=== PATIENT | male | born 1940 | race Caucasian/White ===

== ENCOUNTER 2016-08-16 06:18 | Emergency (ER) | payer MEDICARE, OTHER | END 2016-08-16 08:34 | disposition home or self-care (01) | LOC: FER 06:18 | DX: S83.412A Sprain of medial collateral ligament of left knee, initial encounter (principal); W54.1XXA Struck by dog, initial encounter; Y92.009 Unspecified place in unspecified non-institutional (private) residence as the place of occurrence of the external cause | CPT/HCPCS: 73564; 99283 ==

== ENCOUNTER 2021-10-11 07:08 | Inpatient (IN) | payer MEDICARE, OTHER ==
[~2021-10-11] VITALS: Ht 185.4 cm; Wt 75.9 kg
[~2021-10-11 07:08] MED LIST: CIPRO500 MG PO
[2021-10-11 07:39] LABS: BASOPHIL 0.9 % (0-2); EOSINOPHIL 1.8 % (0-7); HCT 46.3 % (42.0-52.0); HGB 14.3 g/dl (13.2-18.0); LYMPHOCYTE 23.7 % (15-48); MCH 26.8 pg (25.0-31.0); MCHC 30.9 g/dL (32.0-36.0); MCV 86.7 fL (78.0-100.0); MONOCYTE 6.5 % (0-12); NEUTROPHIL 66.9 % (41-80); NRBC 0; PLT 213 K/uL (150-400); RBC 5.34 M/uL (4.70-6.00); RDW 14.5 % (11.5-14.0); WBC 5.5 K/uL (4.0-10.5)
[2021-10-11 07:57] LABS: INR 1.02 (0.9-1.2); PROTHROMBIN TIME 13.1 SECONDS (11.9-13.9); PTT 29.7 SECONDS (24.9-34.6)
[2021-10-11 08:18] LABS: ALBUMIN 4.2 g/dL (3.4-5.0); GLOBULIN (CALCULATION) 3.9 g/dL; TOTAL PROTEIN 8.1 g/dL (6.4-8.2)
[2021-10-11 09:14] LABS: BILIRUBIN - TOTAL 0.5 mg/dL (0.2-1.0); BUN/CREAT RATIO (CALC) 18.4 RATIO; CREATININE 1.36 mg/dL (0.67-1.17)
[2021-10-11] MEDS ORDERED: ONE-A-DAY MEN'1 EAC3 PO (10:48)
[2021-10-11 11:09] LABS: BILIRUBIN NEGATIVE (NEGATIVE); BLOOD NEGATIVE Ery/uL (NEGATIVE); CLARITY CLEAR (CLEAR); COLOR YELLOW (YELLOW); GLUCOSE (U) NORMAL (NORMAL); LEUKOCYTES NEGATIVE Leu/uL (NEGATIVE); NITRITE NEGATIVE (NEGATIVE); PROTEIN TRACE (LOW) mg/dL (NEGATIVE); SPECIFIC GRAVITY 1.025 (1.001-1.030)
[2021-10-11] MEDS ORDERED: REFRESH CLASSI1 EACH EYEBOTH (18:29)
[2021-10-12 07:19] LABS: BUN/CREAT RATIO (CALC) 17.4 RATIO; CREATININE 1.38 mg/dL (0.67-1.17); MAGNESIUM 2.1 mg/dL (1.8-2.4); POTASSIUM 4.9 mmol/L (3.5-5.1)
[2021-10-12 07:26] LABS: BASOPHIL 1.2 % (0-2); EOSINOPHIL 4.2 % (0-7); HCT 39.7 % (42.0-52.0); HGB 12.4 g/dl (13.2-18.0); LYMPHOCYTE 25.5 % (15-48); MCH 27.3 pg (25.0-31.0); MCHC 31.2 g/dL (32.0-36.0); MCV 87.4 fL (78.0-100.0); MONOCYTE 9.9 % (0-12); MPV 8.9 fL (6.0-9.5); NRBC 0; PLT 192 K/uL (150-400); RBC 4.54 M/uL (4.70-6.00); RDW 14.5 % (11.5-14.0); WBC 5.1 K/uL (4.0-10.5)
[2021-10-13 07:33] LABS: HCT 38.2 % (42.0-52.0); HGB 11.9 g/dl (13.2-18.0); MCH 27.2 pg (25.0-31.0); MCHC 31.2 g/dL (32.0-36.0); MCV 87.2 fL (78.0-100.0); RBC 4.38 M/uL (4.70-6.00); RDW 14.5 % (11.5-14.0); WBC 5.9 K/uL (4.0-10.5)
[2021-10-13 07:50] LABS: BUN/CREAT RATIO (CALC) 20.6 RATIO; CREATININE 1.41 mg/dL (0.67-1.17); MAGNESIUM 2.1 mg/dL (1.8-2.4); POTASSIUM 4.8 mmol/L (3.5-5.1)
== END 2021-10-14 15:13 | disposition home or self-care (01) | DRG 200 ==
LOC: FER 07:08 → FMS 08:33
PROVIDERS: Emergency Medicine; ADMIT Internal Medicine
PROC: 0W9930Z Drainage of Right Pleural Cavity with Drainage Device, Percutaneous Approach (ICD-10-PCS; principal; 2021-10-11)
DX: J93.0 Spontaneous tension pneumothorax (principal); C77.2 Secondary and unspecified malignant neoplasm of intra-abdominal lymph nodes; J43.9 Emphysema, unspecified; Z20.822 Contact with and (suspected) exposure to COVID-19; N18.30 Chronic kidney disease, stage 3 unspecified; Z87.39 Personal history of other diseases of the musculoskeletal system and connective tissue; Z90.5 Acquired absence of kidney; Z85.528 Personal history of other malignant neoplasm of kidney
CPT/HCPCS: 36415; 71045; 80048; 80053; 81001; 83735; 83880; 84484; 85025; 85610; 85730; 93005; 96374; 96375; J1170; U0002

== ENCOUNTER 2021-10-21 11:35 | Inpatient (IN) | payer MEDICARE, OTHER ==
[~2021-10-21] VITALS: Ht 185.4 cm; Wt 73.7 kg
[~2021-10-21 11:35] MED LIST changes: +ONE-A-DAY MEN'1 EAC3 PO; +REFRESH CLASSI1 EACH EYEBOTH
[2021-10-21 12:48] LABS: BILIRUBIN NEGATIVE (NEGATIVE); BLOOD NEGATIVE Ery/uL (NEGATIVE); CLARITY CLEAR (CLEAR); COLOR YELLOW (YELLOW); GLUCOSE (U) NORMAL (NORMAL); LEUKOCYTES NEGATIVE Leu/uL (NEGATIVE); NITRITE NEGATIVE (NEGATIVE); PROTEIN NEGATIVE (NEGATIVE); UROBILINOGEN 0.2 mg/dL (0.2-1.0)
[2021-10-21 13:15] LABS: EOSINOPHIL 3.5 % (0-7); HCT 41.7 % (42.0-52.0); HGB 13.3 g/dl (13.2-18.0); MCHC 31.9 g/dL (32.0-36.0); MCV 84.6 fL (78.0-100.0); MONOCYTE 8.1 % (0-12); NEUTROPHIL 68.1 % (41-80); NRBC 0; PLT 250 K/uL (150-400); RBC 4.93 M/uL (4.70-6.00); RDW 14.2 % (11.5-14.0)
[2021-10-21 13:27] LABS: ALBUMIN 3.9 g/dL (3.4-5.0); BILIRUBIN - TOTAL 0.4 mg/dL (0.2-1.0); BUN/CREAT RATIO (CALC) 15.9 RATIO; CREATININE 1.7 mg/dL (0.67-1.17); POTASSIUM 4.6 mmol/L (3.5-5.1); TOTAL PROTEIN 7.9 g/dL (6.4-8.2)
[2021-10-21] MEDS ORDERED: ACETAMINOPHEN500 M1 PO (15:23)
[2021-10-21] MEDS ORDERED: NORCO 5-325 TA1 EACH PO (15:34)
[2021-10-21] MEDS ORDERED: ALAWAY10 ML EYEBOTH (15:35)
[2021-10-21] MEDS ORDERED: FIBERCON625 MG PO (15:36)
[2021-10-21] MEDS ORDERED: ARTIFICIAL TEAR15 M5 EYEBOTH (15:41)
[2021-10-22 06:54] LABS: BASOPHIL 1.1 % (0-2); EOSINOPHIL 4.6 % (0-7); HCT 37.7 % (42.0-52.0); HGB 12.3 g/dl (13.2-18.0); LYMPHOCYTE 21.9 % (15-48); MCH 27.7 pg (25.0-31.0); MCHC 32.6 g/dL (32.0-36.0); MCV 84.9 fL (78.0-100.0); MONOCYTE 10.3 % (0-12); MPV 8.9 fL (6.0-9.5); NEUTROPHIL 61.7 % (41-80); NRBC 0; PLT 214 K/uL (150-400); RBC 4.44 M/uL (4.70-6.00); RDW 14.1 % (11.5-14.0); WBC 5.4 K/uL (4.0-10.5)
[2021-10-22 07:14] LABS: BUN/CREAT RATIO (CALC) 15.1 RATIO; CREATININE 1.52 mg/dL (0.67-1.17); POTASSIUM 4.3 mmol/L (3.5-5.1)
[2021-10-23] MEDS ORDERED: ZOLPIDEM TARTRAT5 MG PO (15:50)
[2021-10-23] MEDS ORDERED: MIRALAX17 GM PO (15:50)
[2021-10-23] MEDS ORDERED: TAMSULOSIN HCL0.4 MG PO (15:50)
== END 2021-10-23 18:30 | disposition other institution (70) | DRG 201 ==
LOC: FER 11:35 → FMS 13:55
PROVIDERS: Emergency Medicine; ADMIT Internal Medicine
PROC: 0W9930Z Drainage of Right Pleural Cavity with Drainage Device, Percutaneous Approach (ICD-10-PCS; principal; 2021-10-22)
DX: J93.83 Other pneumothorax (principal); J43.9 Emphysema, unspecified; Z20.822 Contact with and (suspected) exposure to COVID-19; K59.03 Drug induced constipation; T40.605A Adverse effect of unspecified narcotics, initial encounter; G47.00 Insomnia, unspecified; N18.31 Chronic kidney disease, stage 3a; Z87.891 Personal history of nicotine dependence; Z90.5 Acquired absence of kidney; Z85.528 Personal history of other malignant neoplasm of kidney; Z79.899 Other long term (current) drug therapy
CPT/HCPCS: 36415; 71045; 71046; 71250; 80048; 80053; 81003; 85025; 96374; 96375; J1650; J2270; J2405; U0002